=== PATIENT | female | born 1985 | race Caucasian/White ===

== ENCOUNTER 2022-06-09 15:59 | Emergency (ER) | payer BC, SELFPAY ==
[2022-06-09 16:14] VITALS: BP 130/80; PULSE 65; RESP 18; TEMP 37.2; O2SAT 100
--- NOTE | 2022-06-09 16:27 | ED.GENADULT ---
HPI - General Adult General Chief complaint: Neck Pain/Injury Stated complaint: . History of Present Illness HPI narrative: 36 y/o female. PMHx non-contributory. Presents to [facility] today with acute complaints of bilateral neck muscle stiffness and pain, LT > Burdensome than RT. Client reports to have awoke 48 hours ago with stiffness. She describes a 'sharp' pain type sensation with quick head turning or quick upper extremity movements. Her neck feels 'stiff' during the day. Intermittently with pain radiating down bilateral shoulders. She describes bilateral hand 'tingling' sensation, of which has since subsided. No falls or trauma have been identified. Denies fever, no midline spinal pain or issues. No loss of upper extremity sensation or control. No unilateral deficits. She has not yet sought out medical evaluation until now, today. She is without additional acute c/o upon PE. Related Data Home Medications Medication Instructions Recorded Confirmed No Home Medications 06/09/22 06/09/22 Allergies Allergy/AdvReac Type Severity Reaction Status Date / Time acetaminophen Allergy Swelling Verified 06/09/22 16:23 [From Excedrin Migraine] aspirin Allergy Swelling Verified 06/09/22 16:23 [From Excedrin Migraine] caffeine Allergy Swelling Verified 06/09/22 16:23 [From Excedrin Migraine] Review of Systems Review of Systems: CONSTITUTIONAL: Denies fever, chills, sweats. EYES: Denies visual changes, redness, discharge. ENT: Denies rhinorrhea, congestion, sore throat, otalgia. CARDIOVASCULAR: Denies chest pain, palpitations, edema. RESPIRATORY: Denies dyspnea, wheezing, cough GASTROINTESTINAL: Denies abdominal pain, nausea, vomiting, diarrhea. GENITOURINARY: Denies dysuria, hematuria, abnormal discharge SKIN: Denies rash or itching. MUSCULOSKELETAL: Bilateral neck muscle stiffness. Denies additional back pain, joint pain, or myalgia. NEUROLOGIC: Denies numbness, or focal weakness. PSYCHIATRIC: Denies anxiety or depression. Exam Narrative: GENERAL: This is a well-nourished, well-developed adult, in no apparent distress. HEAD: normocephalic, atraumatic. EYES: PERRL. Sclera clear/white. EARS: External ears normal. NOSE: External nose normal. THROAT: Mucous membranes moist. NECK: Neck supple, non-tender without lymphadenopathy, masses or thyromegaly. CARDIOVASCULAR: Regular rate and rhythm without murmurs, gallops, or rubs. Strong pulses BUE. RESPIRATORY: Clear to auscultation. Breath sounds equal bilaterally. No wheezes, rales, or rhonchi. GASTROINTESTINAL: Abdomen soft, non-tender, nondistended. Bowel sounds are active. No guarding. SKIN: warm, intact with no suspicious lesions or rash, good texture and turgor. NEURO: Alert, active, and age appropriate. No focal neurologic deficits. Good sensation and discrimination BUE. EXTREMITIES/CERVICAL NECK: With reproducible cervical neck/trapezius muscle spasms bilaterally. There is no appreciable midline tenderness or deformity. Full and unrestricted cervical ROM. No meningeal signs. Extremities unremarkable. Course Course Level of Care: Express Care Visit Vital Signs Vital signs: Vital Signs Temperature 37.2 C 06/09/22 16:14 Pulse Rate 65 06/09/22 16:14 Respiratory Rate 18 06/09/22 16:14 Blood Pressure 130/80 06/09/22 16:14 Pulse Oximetry 100 06/09/22 16:14 Oxygen Delivery Room Air 06/09/22 16:14 Temperature 37.2 C 06/09/22 16:14 Pulse Rate 65 06/09/22 16:14 Respiratory Rate 18 06/09/22 16:14 Blood Pressure 130/80 06/09/22 16:14 Pulse Oximetry 100 06/09/22 16:14 Oxygen Delivery Room Air 06/09/22 16:14 Medical Decision Making MDM Narrative Medical decision making narrative: -No focal neurological deficits. -No falls or neck trauma. -Full and unrestricted Cervical neck ROM, no meningeal signs. -Reproducible muscle spasm on exam. -Start Medrol Dose PK, NSAID, Norf
== END 2022-06-09 16:30 | disposition home or self-care (01) ==
PROVIDERS: Emergency Provider Nurse Practitioner Adult Health
DX: M62.838 Other muscle spasm (principal)
CPT/HCPCS: 99203; G0463

== ENCOUNTER 2022-07-01 15:57 | Emergency (ER) | payer BC, SELFPAY ==
[2022-07-01 16:04] VITALS: BP 124/68; PULSE 83; RESP 18; TEMP 36.9; O2SAT 99
--- NOTE | 2022-07-01 16:05 | ED.URI ---
HPI - URI/Sore Throat General Chief Complaint: Upper Respiratory Infection Stated Complaint: Sore Throat,Cough Time Seen by Provider: 07/01/22 16:06 Source: patient and RN notes reviewed Mode of arrival: ambulatory Limitations: no limitations History of Present Illness HPI Narrative: 36-year-old female presents concern for sore throat and exposure to strep throat. She reports dry cough, drainage, sore throat. She reports her daughter was diagnosed with strep throat. She reports she is taking Zyrtec. She reports she has allergies and has been also having allergy symptoms MD elicited complaint: sore throat Related Data Home Medications Medication Instructions Recorded Confirmed No Home Medications 06/09/22 07/01/22 Allergies Allergy/AdvReac Type Severity Reaction Status Date / Time acetaminophen AdvReac Intermediate Swelling Verified 07/01/22 16:00 [From Excedrin Migraine] aspirin AdvReac Intermediate Swelling Verified 07/01/22 16:00 [From Excedrin Migraine] caffeine AdvReac Intermediate Swelling Verified 07/01/22 16:00 [From Excedrin Migraine] Review of Systems Review of Systems: CONSTITUTIONAL: Denies malaise, chills, sweats, or fever. EYES: Denies visual changes, redness, or discharge. ENT: Reports rhinorrhea, congestion, sinus pain, otalgia. Report postnasal drainage and sore throat. CARDIOVASCULAR: Denies chest pain, palpitations, or edema. RESPIRATORY: Reports dry cough. Denies dyspnea. GASTROINTESTINAL: Denies abdominal pain, nausea, vomiting, diarrhea SKIN: Denies rash or itching. MUSCULOSKELETAL: Denies myalgia. NEUROLOGIC: Denies headache. All systems reviewed & are unremarkable except as noted in HPI and below PMFSH Comments At time of signature, agree with nursing past medical, surgical, social and family history. There is no relevant family history pertinent to the presenting complaint Exam Narrative: GENERAL: Well-appearing, well-nourished, and in no acute distress. HEAD: Normocephalic EYES: PERRLA, conjunctivae clear ENT: Nares clear. Mucous membranes moist. TM pearly escalante with sharp light reflex bilaterally; no tragal tenderness. Oropharynx erythematous without lesions. Tonsils not enlarged and without exudate, no drooling, no hoarseness, no trismus, uvula midline. NECK: Supple. No lymphadenopathy CHEST: Clear to auscultation, breath sounds equal. No wheezing, rhonchi, rales, or stridor. No respiratory distress, speaks in full sentences. HEART: Regular rate and rhythm. No murmur heard. SKIN: Warm, dry, no rash. NEURO: Alert and oriented x3. PSYCH: Normal mood and affect Course Course Emergency Course: Patient is aware of diagnosis, understands and agrees to treatment plan. Anticipatory guidance given. Patient agrees to follow-up as directed and is aware of reasons to seek care at the emergency department. Portions of this record may have been created with voice recognition software Level of Care: Express Care Visit Vital Signs Vital signs: Reviewed. MDM - URI/Sore Throat MDM Narrative Medical decision making narrative: Differential diagnosis considered: [place] virus, strep pharyngitis, allergic rhinitis, upper respiratory tract infection, sinusitis, rhinosinusitis, nasopharyngitis. viral pharyngitis, otitis media, otitis externa, pneumonia, bronchitis, viral cough syndrome, viral syndrome, and influenza. Exam findings show no acute concerns or changes; patient is non-toxic appearing and is in no distress. Patient is appropriate for outpatient treatment and follow-up. Lab Data Attestation: I reviewed the patient's lab results. Critical Care Time Critical Care Time Critical Care Time: No Discharge Plan Discharge Clinical Impression: Pharyngitis Patient Disposition: Home, Self-Care Condition: Stable Instructions: Pharyngitis (ED) Additional Instructions: Your rapid strep swab was negative today at [facility]. A throat culture will be sent to the [facility]
== END 2022-07-01 16:19 | disposition home or self-care (01) ==
PROVIDERS: Emergency Provider Nurse Practitioner; PCP Emergency Medicine
DX: J02.9 Acute pharyngitis, unspecified (principal)
CPT/HCPCS: 87081; 87880; 99213; G0463